=== PATIENT | male | born 1995 | race American Indian/Alaskan Native ===

== ENCOUNTER 2021-08-02 10:18 | Emergency (ER) | payer MEDICAID ==
--- NOTE | 2021-08-02 10:46 | ED Physician Documentation ---
PD HPI SKIN - Stated complaint Stated Complaint: RT LEG PX - Chief complaint Chief Complaint: General - History obtained from History obtained from: Patient - History of Present Illness Timing - onset: How many days ago (has had multiple skin sores/lesions for week or more, with new spots on face/arms/legs. Right lower anterior leg with local redness and swelling c/w developing abscess/cellulitis, which he has had in the past. h/o MRSA.) Timing - details: Gradual onset Location: Scalp, Face, RUE, LUE, RLE, LLE Quality / character: Painful, Discolored, Draining (mild serous, not purulent per se.) Associated symptoms: No: Fever, Myalgias, Dyspnea, N/V/D Contributing factors: Other (history of IVDU and skin popping meth currently, previously narcotics. HE is wanting Detox and has talked with [facility] in [place]. He was told needs to be on abx for over 24 hours and get medical clearance prior to being accepted. Here now for these things.). 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 ) Respiratory: None Endocrine/Autoimmune: None - Present Medications Home Medications: Ambulatory Orders Medication Instructions Recorded Confirmed Chlorhexidine Gluconate [Hibiclens] 15 ml TP DAILY #236 ml 08/02/21 LORazepam [Ativan] 1 mg PO BID PRN #12 tablet 08/02/21 Mupirocin 2% Oint [Bactroban 2% 1 applic TOP TID #15 gm 08/02/21 Oint] Naproxen 500 mg PO BID 10 Days #20 tab.sr 08/02/21 Sulfamethox/Trimeth 800/160 1 each PO BID #20 tablet 08/02/21 [Bactrim Ds 800/160] - Allergies Allergies/Adverse Reactions: Allergies Allergy/AdvReac Type Severity Reaction Status Date / Time No Known Drug Allergies Allergy Verified 08/02/21 10:32 PD ED PE NORMAL - Vitals Vital signs reviewed: Yes - General General: Alert and oriented X 3, Well developed/nourished, Other (so many skin lesions with patches of coin sized superficial ulcerations on face, arms, legs. Has local area of swelling/redness/tender without fluctuance anterior right lower leg. ) - Neck Neck: Supple, no meningeal sign, No adenopathy - Cardiac Cardiac: RRR, No murmur - Respiratory Respiratory: Clear bilaterally - Abdomen Abdomen: Soft, Non tender - Derm Derm: Normal color, Warm and dry - Neuro Neuro: Alert and oriented X 3, No motor deficit, Normal speech Results - Vitals Vitals: Vital Signs - 24 hr 08/02/21 08/02/21 10:25 12:32 Temperature 36 C L 36.8 C Heart Rate 66 128 H Respiratory 18 16 Rate Blood Pressure 144/104 H 96/79 O2 Saturation 94 98 Oxygen O2 Source Room air - Labs Labs: Laboratory Tests 08/02/21 08/02/21 08/02/21 11:40 11:51 11:51 WBC 11.6 H RBC 4.48 L Hgb 12.5 L Hct 36.0 L MCV 80.4 MCH 27.9 MCHC 34.7 RDW 13.6 Plt Count 240 MPV 8.0 Neut # (Auto) 5.5 Lymph # (Auto) 4.5 H White # (Auto) 1.0 Eos # (Auto) 0.5 Baso # (Auto) 0.1 Absolute Nucleated RBC 0.00 Nucleated RBC % 0.0 ESR 29 H Sodium Potassium Chloride Carbon Dioxide Anion Gap BUN Creatinine Estimated GFR (MDRD) Glucose Calcium Total Bilirubin AST ALT Alkaline Phosphatase Total Creatine Kinase C-Reactive Protein Total Protein Albumin Globulin Albumin/Globulin Ratio Lipase Urine Color YELLOW Urine Clarity CLEAR Urine pH 6.0 Ur Specific [place] >=1.030 H Urine Protein NEGATIVE Urine Glucose (UA) NEGATIVE Urine Ketones TRACE Urine Occult Blood NEGATIVE Urine Nitrite NEGATIVE Urine Bilirubin NEGATIVE Urine Urobilinogen 2 H Ur Leukocyte Esterase NEGATIVE Ur Microscopic Review NOT INDICATED Urine Culture Comments NOT INDICATED Urine Opiates Screen NEGATIVE Ur Oxycodone Screen NEGATIVE Urine Methadone Screen NEGATIVE Ur Propoxyphene Screen NEGATIVE Ur Barbiturates Screen NEGATIVE Ur Tricyclics Screen NEGATIVE Ur Phencyclidine Scrn NEGATIVE Ur Amphetamine Screen POSITIVE H U Methamphetamines Scrn POSITIVE H U Benzodiazepines Scrn NEGATIVE Urine Cocaine Screen NEGATIVE U Cannabinoids Screen NEGATIVE 08/02/21 11:51 WBC RBC Hgb Hct MCV MCH MCHC RDW Plt Count MPV Neut # (Auto) Lymph # (Auto) White # (Auto) Eos # (Auto) Baso # (Auto) Absolute Nucleated RBC Nucleated RBC % ESR Sodium 136 Potassium 3.6 Chloride 99 L Carbon Dioxide 27 Anion Gap 10.0 BUN 20 Creatinine 0.8 Estimated GFR (MDRD) 116 Glucose 104 H Calcium 9.1 Total Bilirubin 0.5 AST 99 H ALT 83 H Alkaline Phosphatase 109 Total Creatine Kinase 1244 H* C-Reactive Protein 7.0 H Total Protein 7.8 Albumin 3.9 Globulin 3.9 Albumin/Globulin Ratio 1.0 Lipase 22 Urine Color Urine Clarity Urine pH Ur Specific [place] Urine Protein Urine Glucose (UA) Urine Ketones Urine Occult Blood Urine Nitrite Urine Bilirubin Urine Urobilinogen Ur Leukocyte Esterase Ur Microscopic Review Urine Culture Comments Urine Opiates Screen Ur Oxycodone Screen Urine Methadone Screen Ur Propoxyphene Screen Ur Barbiturates Screen Ur Tricyclics Screen Ur Phencyclidine Scrn Ur Amphetamine Screen U Methamphetamines Scrn U Benzodiazepines Scrn Urine Cocaine Screen U Cannabinoids Screen PD MEDICAL DECISION MAKING - ED course Complexity details: re-evaluated patient (he is going to [facility], and has contacted them with intake phone interview. Needs medical clearance and Abx treatment for skin infections. HEre for that, and he is okay with discahrge. Has place to stay tonight with friend. ), considered differential (many skin lesions, superficial discrete ulcerations. No fluctuant abscesses per se. he is concerned about bacteremia/endocarditis. HE does not seem septic. LAbs are only mildly elevated (WBC, ESR). no murmur. Can get blood cultures to eval. ), d/w patient Departure - Departure Disposition: 01 Home, Self Care Clinical Impression: Skin sore, MRSA cellulitis Condition: Stable Record reviewed to determine appropriate education?: Yes Instructions: ED Infec Skin Cellulitis Follow-Up: Felix Clayton MD [Primary Care Provider] - Prescriptions: LORazepam [Ativan] 1 mg PO BID PRN #12 tablet PRN Reason: Anxiety Sulfamethox/Trimeth 800/160 [Bactrim Ds 800/160] 1 each PO BID #20 tablet Mupirocin 2% Oint [Bactroban 2% Oint] 1 applic TOP TID #15 gm Chlorhexidine Gluconate [Hibiclens] 15 ml TP DAILY #236 ml Naproxen 500 mg PO BID 10 Days #20 tab.sr Comments: Cleanse the whole scan with soap and water if ear able to with a sponge bath or shower once or twice daily. Use chlorhexidine antiseptic as a body wash for that to reduce the germs on the surface generally. Mupirocin antibiotic ointment 2-3 times daily to the worst of the source like on the lower legs. Bactrim antibiotic twice daily for 10 days for the infection. Stay well-hydrated. Lorazepam twice daily as needed for anxiety and withdrawal. Tylenol every 4-6 hours if needed for pain. You could use naproxen twice daily anti-inflammatory to help with pains as well. A sent the prescriptions to [facility] in [place]. Your medically cleared for detox. Forms: Activity restrictions Discharge Date/Time: 08/02/21 14:05
[2021-08-02] MEDS ORDERED: SULFAMETH/TRIMETH DS 800/160 MG TABLET PO STA (11:15)
[2021-08-02] MEDS ORDERED: ACETAMINOPHEN 325 MG TABLET PO STA (11:16)
[2021-08-02 11:58] LABS: BASOPHILS # (AUTO) 0.1 10^3/uL (0.0-0.1); BASOPHILS % (AUTO) 0.4 %; EOSINOPHILS # (AUTO) 0.5 10^3/uL (0.0-0.7); EOSINOPHILS % (AUTO) 3.9 %; HGB - HEMOGLOBIN 12.5 g/dL (14.0-18.0); LYMPHOCYTES # (AUTO) 4.5 10^3/uL (1.5-3.5); LYMPHOCYTES % (AUTO) 38.7 %; MEAN CORPUSCULAR HEMOGLOBIN 27.9 pg (27.0-31.0); MEAN CORPUSCULAR HGB CONC 34.7 g/dL (32.0-36.0); MEAN CORPUSCULAR VOLUME 80.4 fL (80.0-94.0); MONOCYTES % (AUTO) 8.8 %; NEUTROPHILS # (AUTO) 5.5 10^3/uL (1.5-6.6); NEUTROPHILS % (AUTO) 47.8 %; PLT - PLATELET COUNT 240 10^3/uL (130-450); RED BLOOD COUNT 4.48 10^6/uL (4.70-6.10); RED CELL DISTRIBUTION WIDTH 13.6 % (12.0-15.0); WHITE BLOOD COUNT 11.6 x10^3/uL (4.8-10.8)
[2021-08-02 11:58] LABS: MUDS CUTOFF CONCENTRATIONS CUTOFF CONC BELOW:
[2021-08-02 12:01] LABS: BILIRUBIN,URINE NEGATIVE (NEGATIVE); GLUCOSE, URINE (UA) NEGATIVE (NEGATIVE); KETONES,URINE (UA) TRACE mg/dL (NEGATIVE); LEUKOCYTE ESTERASE, URINE NEGATIVE (NEGATIVE); NITRITE,URINE NEGATIVE (NEGATIVE); OCCULT BLOOD,URINE NEGATIVE (NEGATIVE); PROTEIN,URINE NEGATIVE (NEGATIVE); UROBILINOGEN,URINE 2 E.U./dL (NORMAL)
[2021-08-02 12:06] LABS: CLARITY,URINE CLEAR (CLEAR)
[2021-08-02 12:21] LABS: AMPHETAMINE SCREEN,URINE POSITIVE (NEGATIVE); BARBITURATE SCREEN,UR NEGATIVE (NEGATIVE); BENZODIAZEPINES SCREEN, URINE NEGATIVE (NEGATIVE); COCAINE SCREEN URINE NEGATIVE (NEGATIVE); METHADONE SCREEN, URINE NEGATIVE (NEGATIVE); METHAMPHETAMINES SCREEN, URINE POSITIVE (NEGATIVE); OPIATE SCREEN, URINE NEGATIVE (NEGATIVE); OXYCODONE SCREEN, URINE NEGATIVE (NEGATIVE); PROPOXYPHENE SCREEN, URINE NEGATIVE (NEGATIVE); THC CANNABINOID SCREEN, URINE NEGATIVE (NEGATIVE); TRICYCLIC ANTIDEPRESSANT,URINE NEGATIVE (NEGATIVE)
[2021-08-02 12:24] LABS: ALBUMIN 3.9 g/dL (3.2-5.5); BILIRUBIN,TOTAL 0.5 mg/dL (0.2-1.0); CALCIUM 9.1 mg/dL (8.5-10.3); CREATININE 0.8 mg/dL (0.6-1.2); POTASSIUM 3.6 mmol/L (3.5-5.0); TOTAL PROTEIN 7.8 g/dL (6.7-8.2)
[2021-08-02 13:01] VITALS: BP 96/79
[2021-08-02] MEDS ORDERED: HYDROcod/ACETAM 5/325 MG TABLET PO STA (13:31)
[2021-08-02] MEDS ORDERED: LORazepam 1 MG TABLET PO STA (13:31)
== END 2021-08-02 14:05 | disposition home or self-care (01) ==
LOC: ED 10:18
DX: L98.9 Disorder of the skin and subcutaneous tissue, unspecified (principal); L03.115 Cellulitis of right lower limb; B95.62 Methicillin resistant Staphylococcus aureus infection as the cause of diseases classified elsewhere
CPT/HCPCS: 36415; 80053; 80306; 81003; 82550; 83690; 85025; 85651; 86140; 87040; 99283; 99284; A9270; J8499; 81001; 87086